=== PATIENT | female | born 1995 | race Caucasian/White ===

== ENCOUNTER 2018-04-19 10:49 | Outpatient (CLI) | payer BC | END 2018-04-19 10:50 | disposition home or self-care (01) | LOC: CTENTCT 10:49 | PROVIDERS: ATTEND Otolaryngology Plastic Surgery within the Head & Neck | DX: J32.8 Other chronic sinusitis (principal) | CPT/HCPCS: 70486 ==

== ENCOUNTER → 2018-04-28 | Day surgery (SDC) | payer BC ==
[2018-04-27 17:01] VITALS: BMI 27.7
[~2018-04-28] MED LIST: Bacitracin Zinc Ointment 30 gm TUBE ONE; Dexamethasone 20 MG/5 ML VIAL ONE; Fentanyl 250 MCG/5 ML VIAL ONE; Lidocaine 1% PF 5 ML VIAL ONE; Lidocaine 1% w/Epinephrine 1:100K 30 ML VIAL ONE; Midazolam HCl 2 mg/2 ml Vial ONE; Ondansetron PF 4 MG/2 ML Vial ONE; Oxymetazoline HCl 0.05% ( 15 ML ) ONE; PROPOFOL 20 ML ONE; PROPOFOL 200 MG/20 ML VIAL ONE
[2018-04-28 12:35] LABS: BHCG - Serum Negative (NEGATIVE); Pregs Control Background? CLEAR/WHITE (CLR/WHITE); Pregs Control Bar Appear? YES (CONTROL BAR)
--- NOTE | 2018-04-29 08:21 | OP ---
DATE OF PROCEDURE: 04/28/2018 PREOPERATIVE DIAGNOSES: 1. Allergic fungal sinusitis. 2. Nasal polyposis. 3. Nasal obstruction. 4. Chronic pansinusitis. POSTOPERATIVE DIAGNOSES: 1. Allergic fungal sinusitis. 2. Nasal polyposis. 3. Nasal obstruction. 4. Chronic pansinusitis. PROCEDURES PERFORMED: 1. Left endoscopic sinus surgery, total ethmoidectomy with removal of tissue. 2. Left endoscopic sinus surgery, frontal sinusotomy with removal of tissue. 3. Left endoscopic sinus surgery, maxillary antrostomy with removal of tissue. 4. Left endoscopic sinus surgery, sphenoidotomies with removal of tissue. 5. Right endoscopic lysis of nasal adhesions. 6. Intraoperative image guided landmark surgery. SURGEON: Dr. Jose Alejandro Adame. ESTIMATED BLOOD LOSS: 50 mL COMPLICATIONS: None. ANESTHESIA: GETA. PROCEDURE IN DETAIL: The patient was taken to the operating room and placed supine on the operating table. General endotracheal anesthesia was obtained by the Anesthesia staff. Tube was secured in th e left lower lip. The patient was then placed in the beach chair position. Following this, Afrin pl edgets were placed in the nasal cavity. The patient was prepped and draped for standard nasal proced ure. Following this, the landmark image guided cranial base system was then set up, calibrated and w as noted to be within 1 mm of accuracy. Following this, the 0-degree endoscope along with the 0-degr ee microdebrider that was calibrated to the landmark system was then entered into the left nasal cavi ty. Nasal polyps were completely obliterated in the left nasal cavity. These were resected using th e 0-degree microdebrider until the lateral wall and posterior nasal wall was identified and used as f urther direct visualization landmark. Following this, copious amounts of allergic fungal debris was removed from the ethmoidal sinuses and the ethmoidal sinuses were opened. The maxillary sinus was vi sualized on the left side and was opened using the curved microdebrider. Large curved suction and st raight suctions were used to remove fungal debris and nasal polyps that were obliterated in the left maxillary sinus. Following this, using the image guided system, the sphenoid sinus was punctured, la rge polyps and fungal debris was removed from this area as well. Following this, the 45 degree scope and the upbiting curved microdebrider were used to remove the allergic fungal debris and nasal polyp s from the frontal sinuses performed on the left side. Following this, the 0 degree scope was used t o examine the right nasal cavity. There was a small adhesion band from the middle turbinates and lat eral nasal wall, which were gently lysed with a sickle knife. Following this, the nasal cavity was i rrigated. MeroPacks were placed bilaterally and a MeroGel, nasal tampon was placed in the left nasal cavity to help prevent bleeding. The patient tolerated the procedure well.
== END ==
LOC: SDC 11:34
PROVIDERS: ATTEND Otolaryngology Plastic Surgery within the Head & Neck
PROC: 09BQ8ZZ Excision of Right Maxillary Sinus, Via Natural or Artificial Opening Endoscopic (ICD-10-PCS; principal; 2018-04-28)
PROC: 09BW8ZZ Excision of Right Sphenoid Sinus, Via Natural or Artificial Opening Endoscopic (ICD-10-PCS; principal; 2018-04-28)
PROC: 09BR8ZZ Excision of Left Maxillary Sinus, Via Natural or Artificial Opening Endoscopic (ICD-10-PCS; principal; 2018-04-28)
PROC: 09BS8ZZ Excision of Right Frontal Sinus, Via Natural or Artificial Opening Endoscopic (ICD-10-PCS; principal; 2018-04-28)
PROC: 09BT8ZZ Excision of Left Frontal Sinus, Via Natural or Artificial Opening Endoscopic (ICD-10-PCS; principal; 2018-04-28)
PROC: 8E09XBZ Computer Assisted Procedure of Head and Neck Region (ICD-10-PCS; principal; 2018-04-28)
PROC: 09TV8ZZ Resection of Left Ethmoid Sinus, Via Natural or Artificial Opening Endoscopic (ICD-10-PCS; principal; 2018-04-28)
PROC: 09BX8ZZ Excision of Left Sphenoid Sinus, Via Natural or Artificial Opening Endoscopic (ICD-10-PCS; principal; 2018-04-28)
PROC: 09TU8ZZ Resection of Right Ethmoid Sinus, Via Natural or Artificial Opening Endoscopic (ICD-10-PCS; principal; 2018-04-28)
DX: J32.4 Chronic pansinusitis (principal); J33.9 Nasal polyp, unspecified; B96.3 Hemophilus influenzae [H. influenzae] as the cause of diseases classified elsewhere; B96.89 Other specified bacterial agents as the cause of diseases classified elsewhere; J30.89 Other allergic rhinitis; J34.89 Other specified disorders of nose and nasal sinuses; Z79.899 Other long term (current) drug therapy; Z98.890 Other specified postprocedural states
CPT/HCPCS: 36415; 84703; 85014; 87070; 87076; 87077; 87102; 87205; 87206; 88304; 88312; J1100; J2001; J2250; J2405; J2704; J3010

== ENCOUNTER 2021-07-29 10:05 | Outpatient (CLI) | payer BC | END 2021-07-29 10:06 | disposition home or self-care (01) | LOC: CTENTCT 10:05 | PROVIDERS: ATTEND Otolaryngology Plastic Surgery within the Head & Neck | DX: J33.9 Nasal polyp, unspecified (principal) | CPT/HCPCS: 70486 ==

== ENCOUNTER 2021-10-25 17:24 | Outpatient (CLI) | payer BC ==
[2021-10-25 18:22] LABS: BHCG - Serum Negative (NEGATIVE); Pregs Control Background? CLEAR/WHITE (CLR/WHITE); Pregs Control Bar Appear? YES (CONTROL BAR)
[2021-10-26 00:12] LABS: SARS-CoV-2 PCR by NAA Not Detected (NotDetected)
== END 2021-10-25 17:25 | disposition home or self-care (01) ==
LOC: LABBT 17:24
PROVIDERS: ATTEND Otolaryngology Plastic Surgery within the Head & Neck
DX: Z01.812 Encounter for preprocedural laboratory examination (principal); J33.9 Nasal polyp, unspecified; J32.8 Other chronic sinusitis; Z20.822 Contact with and (suspected) exposure to COVID-19
CPT/HCPCS: 84703; 85014; U0003; U0005

== ENCOUNTER 2021-10-30 06:47 | Day surgery (SDC) | payer BC ==
[2021-10-28 13:37] VITALS: BMI 33.9
[2021-10-30] MEDS ORDERED: AFRIN NASAL MIST 15 ML BOT ONE ×2 (07:57→09:07)
[2021-10-30] MEDS ORDERED: Lidocaine 1% w/Epinephrine 1:100K 20 ML VIAL ONE (09:07)
[2021-10-30] MEDS ORDERED: fentaNYL Citrate/PF 100 MCG/2 ML SYRINGE ONE (09:26)
[2021-10-30] MEDS ORDERED: Lidocaine 1% PF 5 ML VIAL ONE (09:38)
[2021-10-30] MEDS ORDERED: PROPOFOL 200 MG/20 ML VIAL ONE (09:38)
[2021-10-30] MEDS ORDERED: Dexamethasone 20 MG/5 ML VIAL ONE (09:38)
[2021-10-30] MEDS ORDERED: Ondansetron PF 4 MG/2 ML Vial ONE (09:38)
[2021-10-30] MEDS ORDERED: HYDROcodone/Acetaminophen 5/325 mg Tablet ONE (11:38)
[2021-11-03 11:37] LABS: Fungus Stain Final report (.)
== END 2021-10-30 11:50 | disposition home or self-care (01) ==
LOC: SDC 06:47
PROVIDERS: ATTEND Otolaryngology Plastic Surgery within the Head & Neck
PROC: 09BT8ZZ Excision of Left Frontal Sinus, Via Natural or Artificial Opening Endoscopic (ICD-10-PCS; principal; 2021-10-30)
PROC: 09BQ8ZZ Excision of Right Maxillary Sinus, Via Natural or Artificial Opening Endoscopic (ICD-10-PCS; principal; 2021-10-30)
PROC: 09TL0ZZ Resection of Nasal Turbinate, Open Approach (ICD-10-PCS; principal; 2021-10-30)
PROC: 09TV8ZZ Resection of Left Ethmoid Sinus, Via Natural or Artificial Opening Endoscopic (ICD-10-PCS; principal; 2021-10-30)
DX: J30.89 Other allergic rhinitis (principal); B49 Unspecified mycosis; J33.8 Other polyp of sinus; J32.9 Chronic sinusitis, unspecified; J34.3 Hypertrophy of nasal turbinates; J35.3 Hypertrophy of tonsils with hypertrophy of adenoids; Z79.890 Hormone replacement therapy; Z79.899 Other long term (current) drug therapy
CPT/HCPCS: 87070; 87076; 87102; 87205; 87206; C2625; J1100; J2405; J2704

== ENCOUNTER 2022-07-27 18:59 | Emergency (ER) | payer BC ==
[~2022-07-27 18:59] MED LIST changes: -Bacitracin Zinc Ointment 30 gm TUBE ONE; -Dexamethasone 20 MG/5 ML VIAL ONE; -Fentanyl 250 MCG/5 ML VIAL ONE; +Iopamidol-370 76% 500 ML 1 ML ONE; -Lidocaine 1% PF 5 ML VIAL ONE; -Lidocaine 1% w/Epinephrine 1:100K 30 ML VIAL ONE; -Midazolam HCl 2 mg/2 ml Vial ONE; -Ondansetron PF 4 MG/2 ML Vial ONE; -Oxymetazoline HCl 0.05% ( 15 ML ) ONE; -PROPOFOL 20 ML ONE; -PROPOFOL 200 MG/20 ML VIAL ONE
[2022-07-27 19:50] LABS: #Eosinphils 0.1 thou/uL (0.0-0.7); #Lymphocytes 0.6 thou/uL (1.20-3.40); #Monocytes 0.5 thou/uL (0.11-0.59); #Neutrophils 4.7 thou/uL (1.40-6.50); %Basophils 0.5 % (0.0-1.0); %Eosinophils 1.4 % (0.0-10.0); %Lymphocytes 9.6 % (21.0-51.0); %Monocytes 8.9 % (0.0-10.0); %Neutrophils 79.7 % (42.0-75.0); Hemoglobin 15.1 g/dL (12.0-16.0); Mean Corpuscular HGB CONC 34.5 g/dL (32.0-36.0); Mean Corpuscular Hemoglobin 31.3 pg (27.0-31.0); Mean Corpuscular Volume 90.7 fl (78.0-98.0); Mean Platelet Volume 7.7 fL (7.4-10.4); Platelet Count 240 10x3/uL (130-400); RBC Distribution Width 12.6 % (11.5-14.5); Red Blood Cell (RBC) Count 4.84 mill/uL (4.20-5.40); White Blood Cell (WBC) Count 5.9 10x3/uL (4.8-10.8)
[2022-07-27 20:02] LABS: Bacteria/HPF None Seen HPF (None Seen); Bilirubin Negative (Negative); Blood, Urine Trace (Negative); Clarity Clear (Clear); Glucose, Urine (Dipstick) Normal (Negative); Ketone, Urine Negative (Negative); Leukocyte Negative Leu/uL (Negative); Nitrite Negative (Negative); Protein, Urine (Dipstick) Negative (Neg-Trace); RBC/HPF 0-3 HPF (0-3); Specific Gravity, Urine 1.002 (1.002-1.036); Squamous Epithelial 0-3 HPF (0-3); Urobilinogen Normal mg/dL (Less than 2); WBC/HPF 0-3 HPF (0-3)
[2022-07-27 20:03] LABS: BHCG - Serum Negative (NEGATIVE); Pregs Control Background? CLEAR/WHITE (CLR/WHITE); Pregs Control Bar Appear? YES (CONTROL BAR)
[2022-07-27 20:13] LABS: ALT (SGPT) 15 U/L (8-55); AST (SGOT) 13 U/L (5-34); Albumin 4.5 g/dL (3.5-5.0); Alkaline Phosphatase 72 U/L (40-110); Anion Gap 15 mmol/L (10-20); BUN (Urea Nitrogen) 7 mg/dL (7.0-18.7); Bilirubin, Total 0.5 mg/dL (0.2-1.2); Calc. Creatinine Clearance 0 mL/min (70-130); Calcium 9.4 mg/dL (7.8-10.44); Carbon Dioxide 24 mmol/L (22-29); Chloride 103 mmol/L (98-107); Estimated GFR 108; Globulin 3.1 g/dL (2.4-3.5); Glucose 98 mg/dL (70-105); Potassium 3.7 mmol/L (3.5-5.1); Protein, Total 7.6 g/dL (6.0-8.3); Sodium 138 mmol/L (136-145)
[2022-07-27] MEDS ORDERED: hydrOXYzine 25 MG TAB ONE (20:21)
[2022-07-27] MEDS ORDERED: Ibuprofen 800 MG TAB ONE (20:21)
[2022-07-27 20:31] LABS: Free T4 (Free Thyroxine) 1.38 ng/dL (0.70-1.48); Thyroid Stimulating Hormone 0.4214 uIU/mL (0.35-4.94)
[2022-07-27 22:59] LABS: SARS-CoV-2 NAA Rapid Test DETECTED (NotDetected)
== END 2022-07-28 00:01 | disposition home or self-care (01) ==
LOC: ERS 18:59
DX: U07.1 COVID-19 (principal); E03.9 Hypothyroidism, unspecified; Z20.822 Contact with and (suspected) exposure to COVID-19
CPT/HCPCS: 71045; 71275; 80053; 81003; 81015; 84439; 84443; 84484; 84703; 85025; 85379; 93005; Q9967

== ENCOUNTER 2022-09-17 14:41 | Outpatient (CLI) | payer OTHER | END 2022-09-17 14:42 | disposition home or self-care (01) | LOC: SCSRAD 14:41 | PROVIDERS: ATTEND Family Medicine | DX: U09.9 Post COVID-19 condition, unspecified (principal); R07.89 Other chest pain | CPT/HCPCS: 36415; 71046; 80053; 85025; 85379 ==